=== PATIENT | female | born 1960 | race Asian ===

== ENCOUNTER 2024-06-28 09:42 | Emergency (ER) | payer MEDICARE ==
[~2024-06-28] VITALS: Ht 149.9 cm; Wt 62.7 kg
[2024-06-28 09:46] VITALS: TEMP 98.3
[2024-06-28] MEDS ORDERED: ZOFRAN ODT4 MG PO (11:44)
[2024-06-28 12:10] VITALS: BP 137/97; PULSE 75
== END 2024-06-28 12:10 | disposition home or self-care (01) ==
LOC: COL.ER 09:42
DX: S06.0X0A Concussion without loss of consciousness, initial encounter (principal); W10.9XXA Fall (on) (from) unspecified stairs and steps, initial encounter

== ENCOUNTER 2024-07-05 11:45 | Emergency (ER) | payer MEDICARE ==
[~2024-07-05] VITALS: Ht 149.9 cm; Wt 62.3 kg
[~2024-07-05 11:45] MED LIST: ZOFRAN ODT4 MG PO
[2024-07-05] MEDS ORDERED: Ondansetron 4 MG/2 ML VIAL IV ONE (12:45)
[2024-07-05] MEDS ORDERED: NS 1,000 ML IV ONE (12:45)
[2024-07-05 13:37] LABS: PH 5.5 (5.0-8.5); URINE APPEARANCE CLEAR (CLEAR/HAZY); URINE BLOOD NEGATIVE (NEGATIVE); URINE COLOR YELLOW (YELLOW); URINE GLUCOSE NEGATIVE (NEGATIVE); URINE KETONE TRACE (NEGATIVE); URINE NITRATE NEGATIVE (NEGATIVE); URINE PROTEIN(semi-quant) 1+ (NEGATIVE)
[2024-07-05 13:40] LABS: COLLECTION METHOD CLEAN CATCH
[2024-07-05 14:23] LABS: BASO % 0.8 % (0.0-2.0); EOS # 0.1 K/mm3 (0.0-0.7); EOS % 2.9 % (0.0-4.0); GRAN # 2.6 K/mm3 (1.4-6.5); GRAN % 53.4 % (42.2-75.2); HEMATOCRIT 39.5 % (37.0-47.0); LYMPH # 1.7 K/mm3 (1.2-3.4); LYMPH % 34.8 % (20.0-51.0); MEAN CELL VOLUME 99 fl (80.0-100.0); MEAN CORPUSCULAR HEMOGLOBIN 33 pg (27-31); MEAN CORPUSCULAR HGB CONC 33 g/dl (33.0-37.0); MEAN PLATELET VOLUME 9.8 fl (7.4-10.4); MONO # 0.4 K/mm3 (0.1-0.6); MONO % 7.7 % (1.7-9.3); PLATELET COUNT 239 K/mm3 (130-400); RED BLOOD COUNT 3.98 M/mm3 (4.10-5.30); REDCELL DISTRIBUTION WIDTH-CV 13.1 % (11.5-14.5)
[2024-07-05 14:39] LABS: ALANINE AMINOTRANSFERASE 34 U/L (0-55); ALBUMIN 3.3 g/dL (3.4-4.8); ALKALINE PHOSPHATASE 102 U/L (40-150); ANION GAP 8 mmol/L (7-16); AST,SGOT 25 U/L (5-34); BILIRUBIN,TOTAL 0.2 mg/dL (0.2-1.2); BLOOD UREA NITROGEN 18 mg/dL (10-20); CALCIUM 8.2 mg/dL (8.4-10.2); CHLORIDE 112 mEq/L (98-107); CREATININE, serum 0.82 mg/dL (0.57-1.11); GLUCOSE 95 mg/dL (70-99); POTASSIUM 4.2 mEq/L (3.5-4.5); SODIUM 144 mEq/L (136-145); TOTAL PROTEIN 5.9 g/dl (6.2-8.1)
[2024-07-05 14:48] LABS: TROPONIN-I < 0.010 ng/mL (0.00-0.033)
[2024-07-05] MEDS ORDERED: ZOFRAN ODT4 MG PO (15:13)
[2024-07-05] MEDS ORDERED: FLEXERIL 1010 MG/TAB PO (15:13)
[2024-07-05 15:27] VITALS: BP 124/77; PULSE 56; TEMP 98.2
== END 2024-07-05 15:35 | disposition home or self-care (01) ==
LOC: COL.ER 11:45
PROVIDERS: Family Medicine
DX: R11.2 Nausea with vomiting, unspecified (principal)
CPT/HCPCS: J2405; J7030